=== PATIENT | female | born 1950 | race Caucasian/White ===

== ENCOUNTER 2016-10-27 08:41 | Inpatient (IN) | payer OTHER ==
[2016-10-27] VITALS (7 sets, daily range): BP systolic 114–142; BP diastolic 62–77; PULSE 76–85; RESP 16–18; TEMP 97.9–99.7; O2SAT 92–96
[~2016-10-27] VITALS: Ht 157.5 cm; Wt 55.3 kg
[~2016-10-27 08:41] MED LIST: ASPI81 PO; ATEN1TAB73 PO; CLON.1 PO; HYDR-2768 PO; KLOR20TA6 PO; NIFE1TAB85 PO; PROC60TA PO
[2016-10-27] MEDS ORDERED: LACTULOSE SYRUP 20 GM/30 ML CUP PO ONE (09:00)
[2016-10-27] MEDS ORDERED: SODIUM CHLORID 0.9% 500 ML INJ 500 ML IV ONE (09:00)
[2016-10-27] MEDS ORDERED: CLON0.1T PO (09:02)
[2016-10-27] MEDS ORDERED: ATEN50TA PO (09:02)
[2016-10-27] MEDS ORDERED: AMLO5TAB2 PO (09:02)
[2016-10-27] MEDS ORDERED: POTASSIUM CL (09:02)
[2016-10-27] MEDS ORDERED: MAGN400T2 PO (09:02)
[2016-10-27] MEDS ORDERED: ASPI81TA81 (09:02)
[2016-10-27] MEDS ORDERED: HYDR25TA5 PO (09:02)
--- NOTE | 2016-10-27 09:22 | PD ---
HPI Chief Complaint: GI Complaint Time Seen by Provider: 08:54 Travel History International Travel<30 days: No Contact w/Intl Traveler<30days: No Traveled to known affect area: No History of Present Illness HPI Patient is a 66 year old female who comes in complaining of abdominal pain and constipation. She says she has not had a sufficient bowel movement in two weeks. She reports taking different laxatives and only having small movements or diarrhea. She drank half a bottle of prune juice last night and it caused her to vomit. She says she has some pain to the right side of her abdomen. She denies fever or chills. She has had issues with constipation for many years. She denies dysuria or other symptoms. [facility] Past Medical History Cardiovascular Problems: Yes (HTN) Diminished Hearing: No Gastrointestinal Disorders: Yes (DIVERTICULITIS, CONSTIPATION) Hypertension: Yes Influenza Vaccination: Yes ?: Not Past Surgical History Abdominal Surgery: Yes (HERNIA REPAIR) Tonsillectomy: Yes Social History Alcohol Use: Yes ("A BEER A DAY AFTER WORK") Tobacco Use: No Substance Use: No Allergies-Medications (Allergen,Severity, Reaction): Coded Allergies: Latex (Verified Allergy, Unknown, 10/27/16) Reported Meds & Prescriptions Reported Meds & Active Scripts Active Reported Aspir-81 (Aspirin) 81 Mg Tabdr [Potassium Cl] Magnesium Oxide 400 Mg Tab 400 Mg PO BID Hydrochlorothiazide 25 Mg Tab 25 Mg PO DAILY Clonidine (Clonidine HCl) 0.1 Mg Tab 0.1 Mg PO BID Atenolol 50 Mg Tab 50 Mg PO DAILY Amlodipine (Amlodipine Besylate) 5 Mg Tab 5 Mg PO BID Review of Systems Except as stated in HPI: all other systems reviewed are Neg General / Constitutional: No: Fever, Chills HENT: No: Headaches, Lightheadedness Cardiovascular: No: Chest Pain or Discomfort Respiratory: No: Shortness of Breath Gastrointestinal: Positive: Vomiting, Abdominal Pain, Constipation Genitourinary: No: Dysuria Skin: No Rash, No Change in Pigmentation Neurologic: No: Weakness, Dizziness Physical Exam Narrative GENERAL: Awake and alert, in no acute distress. SKIN: Focused skin assessment warm/dry. HEAD: Atraumatic. Normocephalic. EYES: Pupils equal and round. No scleral icterus. No injection or drainage. ENT: Mucous membranes pink and moist. NECK: Trachea midline. No JVD. CARDIOVASCULAR: Regular rate and rhythm. No murmur appreciated. RESPIRATORY: No accessory muscle use. Clear to auscultation. Breath sounds equal bilaterally. GASTROINTESTINAL: Abdomen soft, nondistended. Tender to palpation of the right lower quadrant. No rebound or guarding. MUSCULOSKELETAL: No obvious deformities. No clubbing. No cyanosis. No edema. NEUROLOGICAL: Awake and alert. No obvious cranial nerve deficits. Motor grossly within normal limits. Normal speech. PSYCHIATRIC: Appropriate mood and affect; insight and judgment normal. Data Data Last Documented VS Vital Signs Date Time Temp Pulse Resp B/P Pulse Ox O2 Delivery O2 Flow Rate FiO2 10/27/16 08:45 98.2 85 16 142/77 96 Orders Complete Blood Count With Diff (10/27/16 09:00) Comprehensive Metabolic Panel (10/27/16 09:00) Ct Abd/Pel W Iv Contrast(Rout) (10/27/16 ) Sodium Chlorid 0.9% 500 Ml Inj (Ns 500 M (10/27/16 09:00) Lactulose Liq (Lactulose Liq) (10/27/16 09:00) Iv Access Insert/Monitor (10/27/16 09:00) Urinalysis - C+S If Indicated (10/27/16 09:22) Potassium Chloride (Kcl) (10/27/16 10:15) Potassium Chlor 10 Meq Premix (Kcl 10 Me (10/27/16 10:15) Iohexol 350 Inj (Omnipaque 350 Inj) (10/27/16 10:54) Ciprofloxacin 400 Mg Premix (Cipro 400 M (10/27/16 11:45) Metronidazole 500 Mg Inj (Flagyl 500 Mg (10/27/16 11:45) Admit Order (Ed Use Only) (10/27/16 ) Labs Laboratory Tests Test 10/27/16 10/27/16 09:15 10:25 White Blood Count 16.8 TH/MM3 Red Blood Count 3.78 MIL/MM3 Hemoglobin 12.5 GM/DL Hematocrit 34.9 % Mean Corpuscular Volume 92.3 FL Mean Corpuscular Hemoglobin 33.0 PG Mean Corpuscular Hemoglobin 35.8 % Concent Red Cell Distribution Width 12.8 % Platelet Count 220 TH/MM3 Mean Platelet Volume 9.6 FL Neutrophils (%) (Auto) 86.9 % Lymphocytes (%) (Auto) 4.9 % Monocytes (%) (Auto) 7.5 % Eosinophils (%) (Auto) 0.6 % Basophils (%) (Auto) 0.1 % Neutrophils # (Auto) 14.6 TH/MM3 Lymphocytes # (Auto) 0.8 TH/MM3 Monocytes # (Auto) 1.3 TH/MM3 Eosinophils # (Auto) 0.1 TH/MM3 Basophils # (Auto) 0.0 TH/MM3 CBC Comment DIFF FINAL Differential Comment Sodium Level 124 MEQ/L Potassium Level 2.5 MEQ/L Chloride Level 79 MEQ/L Carbon Dioxide Level 32.0 MEQ/L Anion Gap 13 MEQ/L Blood Urea Nitrogen 8 MG/DL Creatinine 0.88 MG/DL Estimat Glomerular Filtration 65 ML/MIN Rate Random Glucose 119 MG/DL Calcium Level 9.2 MG/DL Magnesium Level 2.0 MG/DL Total Bilirubin 0.8 MG/DL Aspartate Amino Transf 26 U/L (AST/SGOT) Alanine Aminotransferase 20 U/L (ALT/SGPT) Alkaline Phosphatase 74 U/L Total Protein 8.1 GM/DL Albumin 4.4 GM/DL Thyroid Stimulating Hormone 0.886 uIU/ML 3rd Gen Urine Color STRAW Urine Turbidity CLEAR Urine pH 7.0 Urine Specific [place] 1.007 Urine Protein NEG mg/dL Urine Glucose (UA) NEG mg/dL Urine Ketones NEG mg/dL Urine Occult Blood TRACE Urine Nitrite NEG Urine Bilirubin NEG Urine Leukocyte Esterase NEG Urine RBC 0-3 /hpf Urine Squamous Epithelial 0-5 /hpf Cells Microscopic Urinalysis Comment CULT NOT INDICATED MDM Medical Decision Making Medical Screen Exam Complete: Yes Emergency Medical Condition: Yes Medical Record Reviewed: Yes Differential Diagnosis Constipation versus colitis versus appendicitis versus diverticulitis Narrative Course Patient is a 66-year-old female comes in complaining of abdominal pain and constipation. Exam shows right lower quadrant tenderness. IV established, labs sent. Labs show hyponatremia and hypokalemia. Patient given small bolus of NS. Potassium replaced. CT shows likely colitis vs mass. Given Flagyl and Cipro. Admitted for further management. Diagnosis Primary Impression: Colitis Additional Impressions: Hypokalemia Hyponatremia Admitting Information Admitting Physician Requests: Admit Scripts Sennosides-Docusate Sodium (Senna-S 8.6-50 mg)1 Tab Tab1 Tab PO DAILY #31 TAB Prov:Lanette Lees MD 10/28/16 Lactobacillus Acidophilus (Acidophilus/l-Sporogenes)1 Tab Tab1 Tab PO Q12HR # 62 TAB Prov:Lanette Lees MD 10/28/16 Metronidazole (Flagyl)500 Mg [id number] Mg PO TID #24 TAB Ref 0 Prov:Lanette Lees MD 10/28/16 Ciprofloxacin (Cipro)500 Mg [id number] Mg PO BID #16 TAB Ref 0 Prov:Lanette Lees MD 10/28/16 Condition: Belia Horton MD Oct 27, 2016 09:22
[2016-10-27 09:28] LABS: AUTOMATED NEUTROPHIL # 14.6 TH/MM3 (1.8-7.7); BASOPHIL % 0.1 % (0.0-2.0); EOSINOPHIL # 0.1 TH/MM3 (0-0.4); EOSINOPHIL % 0.6 % (0.0-4.0); HEMATOCRIT 34.9 % (35.0-46.0); HEMO FLAGS DIFF FINAL; LYMPH % 4.9 % (9.0-44.0); LYMPHOCYTE # 0.8 TH/MM3 (1.0-4.8); MEAN CELL VOLUME 92.3 FL (80.0-100.0); MEAN CORPUSCULAR HGB CONC 35.8 % (32.0-36.0); MONO % 7.5 % (0.0-8.0); NEUT % 86.9 % (16.0-70.0); PLATELET COUNT 220 TH/MM3 (150-450); RED BLOOD COUNT 3.78 MIL/MM3 (4.00-5.30); RED CELL DISTRIBUTION WIDTH 12.8 % (11.6-17.2); WHITE BLOOD COUNT 16.8 TH/MM3 (4.0-11.0)
[2016-10-27 10:07] LABS: BLOOD UREA NITROGEN 8 MG/DL (7-18); CHLORIDE 79 MEQ/L (98-107)
[2016-10-27 10:10] LABS: ANION GAP 13 MEQ/L (5-15); POTASSIUM 2.5 MEQ/L (3.5-5.1); SODIUM (NA) 124 MEQ/L (136-145)
[2016-10-27] MEDS ORDERED: POTASSIUM CHLOR 10 MEQ PREMIX 100 ML IV ONE (10:15)
[2016-10-27] MEDS ORDERED: POTASSIUM CHLORIDE 10 MEQ CONTROLLED RELEASE TAB PO ONE (10:15)
[2016-10-27 10:31] LABS: ALKALINE PHOSPHATASE 74 U/L (45-117); ALT (GPT) 20 U/L (10-53); AST (GOT) 26 U/L (15-37); GLOMERULAR FILTRATION RATE 65 ML/MIN (>89); TOTAL BILIRUBIN ADULT 0.8 MG/DL (0.2-1.0)
[2016-10-27 10:54] LABS: BLOOD, URINE TRACE (NEG); GLUCOSE,URINE NEG (NEG); KETONE, URINE NEG (NEG); NITRITE,URINE NEG (NEG)
[2016-10-27] MEDS ORDERED: IOHEXOL 350 MG/ML 10 ML VIAL (for RAD DIAG) IV ONE (10:54)
[2016-10-27 11:03] LABS: COMMENT (UR) CULT NOT INDICATED; CULTURE IF INDICATED CULT NOT INDICATED; RBC, URINE 0-3 /hpf (0-3); SQUAMOUS EPITHELIAL CELL URINE 0-5 /hpf (0-5); URINE COLOR STRAW (YELLW/STRAW)
--- NOTE | 2016-10-27 11:17 | RADHPO ---
EXAM DATE/TIME: 10/27/2016 10:39 [place] COMPARISON: No previous studies available for comparison. INDICATIONS : Right abdominal pain. Constipation x 2 weeks. IV CONTRAST: 85 cc Omnipaque 350 (iohexol) IV ORAL CONTRAST: No oral contrast ingested. RADIATION DOSE: 5.55 CTDIvol (mGy) MEDICAL HISTORY : Diverticulitis. Hypertension. SURGICAL HISTORY : Hernia repair. ENCOUNTER: Initial ACUITY: 2 weeks PAIN SCALE: 4/10 LOCATION: Right abdomen. TECHNIQUE: Volumetric scanning of the abdomen and pelvis was performed. Using automated exposure control and ad justment of the mA and/or kV according to patient size, radiation dose was kept as low as reasonably achievable to obtain optimal diagnostic quality images. FINDINGS: LOWER LUNGS: There is a 5 mm noncalcified nodule within the left lower lobe which is indeterminate. Followup outpa tient CT of chest would be helpful for further evaluation. Bibasilar fibrotic scarring is noted. LIVER: Homogeneous density without lesion. There is no dilation of the biliary tree. No calcified gallston es. SPLEEN: Normal size without lesion. PANCREAS: Within normal limits. KIDNEYS: Normal in size and shape. There is no mass, stone or hydronephrosis. ADRENAL GLANDS: Within normal limits. VASCULAR: There is no aortic aneurysm. BOWEL/MESENTERY: There is wall thickening involving the cecum raising the possibility of focal colitis. Colonoscopy wo uld be helpful for further evaluation to rule out underlying mass. Uncomplicated sigmoid diverticulos is is noted.ABDOMINAL WALL: Within normal limits. RETROPERITONEUM: There is no lymphadenopathy. BLADDER: No wall thickening or mass. REPRODUCTIVE: Within normal limits. INGUINAL: There is no lymphadenopathy or hernia. MUSCULOSKELETAL: Degenerative changes and scoliosis of the lumbar spine are noted. CONCLUSION: 1. Wall thickening involving the cecum raising the possibility of focal colitis. Colonoscopy would be helpful for further evaluation to rule out underlying mass. 2. 5 mm noncalcified nodule within the left lower lobe which is indeterminate. Followup outpatient CT of chest would be helpful for further evaluation. 3. Uncomplicated sigmoid diverticulosis. 4. Degenerative changes and scoliosis of the lumbar spine. Bradley Sanchez MD on October 27, 2016 at 11:07 Board Certified Radiologist. This report was verified electronically.
[2016-10-27] MEDS ORDERED: CIPROFLOXACIN 400 MG PREMIX 200 ML IV ONE (11:45)
[2016-10-27] MEDS ORDERED: metroNIDAZOLE 500 MG INJ 100 ML IV ONE (11:45)
[2016-10-27] MEDS ORDERED: SODIUM CHLORIDE 0.9% FLUSH 10 ML FLUSH IV FLUSH PRN (12:15)
[2016-10-27] MEDS ORDERED: ONDANSETRON HCL 4 MG/2 ML VIAL IVP PRN (13:00)
[2016-10-27] MEDS: SODIUM CHLOR 0.9% 1000 ML INJ 1,000 ML IV SCH ×2 (13:17→21:12)
[2016-10-27] MEDS: LACTULOSE SYRUP 20 GM/30 ML CUP PO SCH ×3 (14:41→20:22)
--- NOTE | 2016-10-27 15:03 | HHI.HP ---
[facility] Admission Diagnosis Hyponatremia, hypokalemia, colitis Diagnoses: Chief Complaint: constpiation Travel History International Travel<30 Days: No Contact w/Intl Traveler <30 Da: No Traveled to Known Affected Are: No History of Present Illness Patient is a 66-year-old female with chronic intermittent constipation for at least 30 years. She has been taking multiple laxatives and stimulants and stool softeners with intermittent relief. For the last 2 weeks she has had no status after bowel movement although she has been passing gas without difficulty. She has intermittent diarrhea and minimal hard stools. There has been no bleeding. She denies any pain with defecation, unexpected weight loss, fever. She did have episode of nausea and vomiting after she drank 30 ounces of hot prune juice yesterday. She has not had any nausea or vomiting before or since that episode. She did go to an urgent care center and was sent to the emergency room. A CT abdomen and pelvis was done which is still some evidence of colitis with stool retention. 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 SKIN: No rashes, ecchymoses or lesions. Cool and dry. HEAD: Atraumatic. Normocephalic. No temporal or scalp tenderness. EYES: Pupils equal round and reactive. Extraocular motions intact. No scleral icterus. No injection or drainage. ENT: Nose without bleeding, purulent drainage or septal hematoma. Throat without erythema, tonsillar hypertrophy or exudate. Uvula midline. Airway patent. NECK: Trachea midline. No JVD or lymphadenopathy. Supple, nontender, no meningeal signs. CARDIOVASCULAR: Regular rate and rhythm without murmurs, gallops, or rubs. RESPIRATORY: Clear to auscultation. Breath sounds equal bilaterally. No wheezes , rales, or rhonchi. GASTROINTESTINAL: Abdomen soft, non-tender, nondistended.hypoactive. No hepato- splenomegaly, or palpable masses. No guarding. MUSCULOSKELETAL: Extremities without clubbing, cyanosis, or edema. No joint tenderness, effusion, or edema noted. No calf tenderness. Negative Homans sign bilaterally. NEUROLOGICAL: Awake and alert. Cranial nerves II through XII intact. Motor and sensory grossly within normal limits. Five out of 5 muscle strength in all muscle groups. Normal speech. Laboratory Laboratory Tests Test 10/27/16 10/27/16 09:15 10:25 White Blood Count 16.8 Red Blood Count 3.78 Hemoglobin 12.5 Hematocrit 34.9 Mean Corpuscular Volume 92.3 Mean Corpuscular Hemoglobin 33.0 Mean Corpuscular Hemoglobin 35.8 Concent Red Cell Distribution Width 12.8 Platelet Count 220 Mean Platelet Volume 9.6 Neutrophils (%) (Auto) 86.9 Lymphocytes (%) (Auto) 4.9 Monocytes (%) (Auto) 7.5 Eosinophils (%) (Auto) 0.6 Basophils (%) (Auto) 0.1 Neutrophils # (Auto) 14.6 Lymphocytes # (Auto) 0.8 Monocytes # (Auto) 1.3 Eosinophils # (Auto) 0.1 Basophils # (Auto) 0.0 CBC Comment DIFF FINAL Differential Comment Sodium Level 124 Potassium Level 2.5 Chloride Level 79 Carbon Dioxide Level 32.0 Anion Gap 13 Blood Urea Nitrogen 8 Creatinine 0.88 Estimat Glomerular Filtration 65 Rate Random Glucose 119 Calcium Level 9.2 Total Bilirubin 0.8 Aspartate Amino Transf 26 (AST/SGOT) Alanine Aminotransferase 20 (ALT/SGPT) Alkaline Phosphatase 74 Total Protein 8.1 Albumin 4.4 Urine Color STRAW Urine Turbidity CLEAR Urine pH 7.0 Urine Specific [place] 1.007 Urine Protein NEG Urine Glucose (UA) NEG Urine Ketones NEG Urine Occult Blood TRACE Urine Nitrite NEG Urine Bilirubin NEG Urine Leukocyte Esterase NEG Urine RBC 0-3 Urine Squamous Epithelial 0-5 Cells Microscopic Urinalysis Comment CULT NOT INDICATED Result Diagram: 10/27/16 0915 10/27/16 0915 Imaging Last Impressions Abdomen/Pelvis CT 10/27/16 0000 Signed Impressions: Service Date/Time: , October 27, 2016 10:39 - CONCLUSION: 1. Wall thickening involving the cecum raising the possibility of focal colitis. Colonoscopy would be helpful for further evaluation to rule out underlying mass. 2. 5 mm noncalcified nodule within the left lower lobe which is indeterminate. Followup outpatient CT of chest would be helpful for further evaluation. 3. Uncomplicated sigmoid diverticulosis. 4. Degenerative changes and scoliosis of the lumbar spine. Bradley Sanchez MD Assessment and Plan Problem List: (1) Constipation ICD Code: K59.00 Status: Acute Plan: Chronic for years. Patient has been on and off laxative stimulants for at least 3 decades. We'll add lactulose and probiotics, educate patient regarding bowel health Evaluate for pathogenic diarrhea tsh, mag pending correct electrolytes colonoscopy 9 years ago patient refuses endoscopy at this time I did review the CT scan personally and there appears to be quite a bit of stool with some inflammation around the cecum (2) Colitis ICD Code: K52.9 Status: Acute Plan: cipro/flagyl empiric check cultures (3) Hypokalemia ICD Code: E87.6 Status: Acute Plan: replace and check mg (4) Hyponatremia ICD Code: E87.1 Status: Acute Plan: ivf, follow trend Code Status Full code Discussed Condition With Patient, Mary Ann STAHL and sister APARNA Carrington Physician Certification 2 Midnight Certification Type: Admission for Inpatient Services Order for Inpatient Services The services are ordered in accordance with Medicare regulations or non- Medicare payer requirements, as applicable. In the case of services not specified as inpatient-only, they are appropriately provided as inpatient services in accordance with the 2-midnight benchmark. Estimated LOS (days): 3 3 days is the estimated time the patient will need to remain in the hospital, assuming treatment plan goals are met and no additional complications. Post-Hospital Plan: Home Lanette Lees MD Oct 27, 2016 15:03
[2016-10-27 19:27] LABS: C. DIFF EPI 027 PRESUMPTIVE NEGATIVE (NEGATIVE); C. DIFF TOXIN PCR NEGATIVE (NEGATIVE)
[2016-10-27] MEDS: MAGNESIUM OXIDE 400 MG TAB PO SCH (20:21)
[2016-10-27] MEDS: SODIUM CHLORIDE 0.9% FLUSH 10 ML FLUSH IV FLUSH SCH (20:22)
[2016-10-27] MEDS: LACTOBACILLUS ACIDOPHILUS TAB PO SCH (20:22)
[2016-10-27] MEDS: cloNIDine HCL 0.1 MG TAB PO SCH (20:22)
[2016-10-27] MEDS: metroNIDAZOLE 500 MG INJ 100 ML IV SCH (20:22)
[2016-10-27] MEDS: amLODIPine BESYLATE 5 MG TAB PO SCH (20:22)
[2016-10-27] MEDS ORDERED: DICYCLOMINE HCL 20 MG TAB PO ONE (21:00)
[2016-10-28] VITALS: BP 109/64; PULSE 75; RESP 16; TEMP 98.5; O2SAT 96
[2016-10-28] MEDS: CIPROFLOXACIN 400 MG PREMIX 200 ML IV SCH ×2 (01:41→11:33)
[2016-10-28] MEDS: metroNIDAZOLE 500 MG INJ 100 ML IV SCH ×2 (06:04→11:33)
[2016-10-28 08:00] VITALS: BP 116/64; PULSE 67; RESP 16; TEMP 97.5; O2SAT 98
[2016-10-28] MEDS: SODIUM CHLOR 0.9% 1000 ML INJ 1,000 ML IV SCH (08:15)
[2016-10-28 08:50] LABS: AUTOMATED NEUTROPHIL # 12.1 TH/MM3 (1.8-7.7); BASOPHIL # 0.1 TH/MM3 (0-0.2); BASOPHIL % 0.4 % (0.0-2.0); EOSINOPHIL # 0.1 TH/MM3 (0-0.4); EOSINOPHIL % 0.5 % (0.0-4.0); HEMATOCRIT 31.7 % (35.0-46.0); LYMPH % 10.1 % (9.0-44.0); LYMPHOCYTE # 1.5 TH/MM3 (1.0-4.8); MEAN CELL VOLUME 94.7 FL (80.0-100.0); MEAN CORPUSCULAR HEMOGLOBIN 32.2 PG (27.0-34.0); MONO % 7.2 % (0.0-8.0); NEUT % 81.8 % (16.0-70.0); PLATELET COUNT 193 TH/MM3 (150-450); RED BLOOD COUNT 3.35 MIL/MM3 (4.00-5.30); WHITE BLOOD COUNT 14.9 TH/MM3 (4.0-11.0)
[2016-10-28 08:52] LABS: HEMO FLAGS DIFF FINAL
[2016-10-28] MEDS: SODIUM CHLORIDE 0.9% FLUSH 10 ML FLUSH IV FLUSH SCH (09:00)
[2016-10-28] MEDS ORDERED: ATENOLOL 50 MG TAB PO SCH (09:00)
[2016-10-28] MEDS ORDERED: HYDROCHLOROTHIAZIDE 25 MG TAB PO SCH (09:00)
[2016-10-28] MEDS: MAGNESIUM OXIDE 400 MG TAB PO SCH (09:24)
[2016-10-28] MEDS: LACTOBACILLUS ACIDOPHILUS TAB PO SCH (09:24)
[2016-10-28] MEDS: cloNIDine HCL 0.1 MG TAB PO SCH (09:24)
[2016-10-28] MEDS: amLODIPine BESYLATE 5 MG TAB PO SCH (09:24)
[2016-10-28] MEDS: LACTULOSE SYRUP 20 GM/30 ML CUP PO SCH ×2 (09:25→11:33)
[2016-10-28 10:16] LABS: BICARBONATE 28.7 MEQ/L (21.0-32.0)
[2016-10-28 10:18] LABS: POTASSIUM 2.6 MEQ/L (3.5-5.1)
[2016-10-28] MEDS ORDERED: POTASSIUM CHLORIDE 10 MEQ CONTROLLED RELEASE TAB PO SCH (11:00)
[2016-10-28 12:00] VITALS: BP 128/73; PULSE 70; RESP 18; TEMP 97.5; O2SAT 97
[2016-10-28] MEDS ORDERED: LACT PO (12:49)
[2016-10-28] MEDS ORDERED: METR-1 PO (12:49)
[2016-10-28] MEDS ORDERED: SENN8.6T19 PO (12:49)
[2016-10-28] MEDS ORDERED: CIPR-9 PO (12:49)
--- NOTE | 2016-10-28 12:50 | HHI.DCPOC ---
Discharge Care Plan Diagnosis: (1) Constipation (2) Colitis Goals to Promote Your Health * To prevent worsening of your condition and complications * To maintain your health at the optimal level Directions to Meet Your Goals Take your medications as prescribed Follow your dietary instruction Follow activity as directed Keep your appointments as scheduled Take your immunizations and boosters as scheduled If your symptoms worsen call your PCP, if no PCP go to Urgent Care Center or Emergency Room Smoking is Dangerous to Your Health. Avoid second hand smoke Call the 24-hour hour crisis hotline for domestic abuse at Lanette Lees MD Oct 28, 2016 12:50
--- NOTE | 2016-10-28 13:59 | HHI.DS ---
Discharge Summary Admission Date Oct 27, 2016 at 14:46 Discharge Date: Oct 28, 2016 Admitting Diagnosis Hyponatremia, hypokalemia, colitis (1) Constipation ICD Code: K59.00 (2) Colitis ICD Code: K52.9 (3) Hypokalemia ICD Code: E87.6 (4) Hyponatremia ICD Code: E87.1 Procedures none Brief History - From Admission Patient is a 66-year-old female with chronic intermittent constipation for at least 30 years. She has been taking multiple laxatives and stimulants and stool softeners with intermittent relief. For the last 2 weeks she has had no status after bowel movement although she has been passing gas without difficulty. She has intermittent diarrhea and minimal hard stools. There has been no bleeding. She denies any pain with defecation, unexpected weight loss, fever. She did have episode of nausea and vomiting after she drank 30 ounces of hot prune juice yesterday. She has not had any nausea or vomiting before or since that episode. She did go to an urgent care center and was sent to the emergency room. A CT abdomen and pelvis was done which is still some evidence of colitis with stool retention. Patient has been admitted to the hospital for further evaluation and treatment of this issue CBC/BMP: 10/28/16 0833 10/28/16 0833 Significant Findings Laboratory Tests Test 10/27/16 10/27/16 10/28/16 09:15 10:25 08:33 White Blood Count 16.8 TH/MM3 14.9 TH/MM3 (4.0-11.0) (4.0-11.0) Red Blood Count 3.78 MIL/MM3 3.35 MIL/MM3 (4.00-5.30) (4.00-5.30) Hematocrit 34.9 % 31.7 % (35.0-46.0) (35.0-46.0) Neutrophils (%) (Auto) 86.9 % 81.8 % (16.0-70.0) (16.0-70.0) Lymphocytes (%) (Auto) 4.9 % (9.0-44.0) Neutrophils # (Auto) 14.6 TH/MM3 12.1 TH/MM3 (1.8-7.7) (1.8-7.7) Lymphocytes # (Auto) 0.8 TH/MM3 (1.0-4.8) Monocytes # (Auto) 1.3 TH/MM3 1.1 TH/MM3 (0-0.9) (0-0.9) Sodium Level 124 MEQ/L 133 MEQ/L (136-145) (136-145) Potassium Level 2.5 MEQ/L 2.6 MEQ/L (3.5-5.1) (3.5-5.1) Chloride Level 79 MEQ/L 95 MEQ/L (98-107) (98-107) Estimat Glomerular Filtration 65 ML/MIN (>89) Rate Random Glucose 119 MG/DL (74-106) Urine Occult Blood TRACE (NEG) Hemoglobin 10.8 GM/DL (11.6-15.3) Blood Urea Nitrogen 4 MG/DL (7-18) Imaging Last Impressions Abdomen/Pelvis CT 10/27/16 0000 Signed Impressions: Service Date/Time: October 10:39 - CONCLUSION: 1. Wall thickening involving the cecum raising the possibility of focal colitis. Colonoscopy would be helpful for further evaluation to rule out underlying mass. 2. 5 mm noncalcified nodule within the left lower lobe which is indeterminate. Followup outpatient CT of chest would be helpful for further evaluation. 3. Uncomplicated sigmoid diverticulosis. 4. Degenerative changes and scoliosis of the lumbar spine. Bradley Sanchez MD PE at Discharge GENERAL: This is a well-nourished, well-developed patient, in no apparent distress. CARDIOVASCULAR: Regular rate and rhythm without murmurs, gallops, or rubs. RESPIRATORY: Clear to auscultation. Breath sounds equal bilaterally. No wheezes , rales, or rhonchi. GASTROINTESTINAL: Abdomen soft, non-tender, nondistended. Normal active bowel sounds MUSCULOSKELETAL: Extremities without clubbing, cyanosis, or edema. NEURO: Alert & Oriented x4 to person, place, time, situation. Moves all ext x4 Pt update on day of discharge Patient seen and examined today in follow up for constipation and colitis, patient reports good BM overnight and minimal discomfort.I reinforced the need for gi follow up and she again agreed for outpatient follow up. DC med discussed with patient. Hospital Course Patient evaluated for constipation and colitis. Stool studies negative. Potassium replaced and leukocytosis improved. The BM improved and she was dc'd home Pt Condition on Discharge: Good Discharge Disposition: Discharge Home Discharge Time: > 30 minutes Discharge Instructions DIET: Follow Instructions for: High Fiber Diet Activities you can perform: Regular-No Restrictions Follow up Referrals: [facility]enter[facility] - [facility] New Medications: Ciprofloxacin (Cipro) 500 Mg Tab 500 MG PO BID Infection #16 Ref 0 TAB Metronidazole (Flagyl) 500 Mg Tab 500 MG PO TID Infection #24 Ref 0 TAB Sennosides-Docusate Sodium (Senna-S 8.6-50 mg) 1 Tab Tab 1 TAB PO DAILY Constipation #31 TAB Lactobacillus Acidophilus (Acidophilus/l-Sporogenes) 1 Tab Tab 1 TAB PO Q12HR colon #62 TAB Continued Medications: Amlodipine (Amlodipine) 5 Mg Tab 5 MG PO BID Blood Pressure Management #30 Ref [address] (Aspir-81) 81 Mg Tabdr Atenolol (Atenolol) 50 Mg Tab 50 MG PO DAILY Blood Pressure Management #30 Ref 0 TAB Clonidine (Clonidine) 0.1 Mg Tab 0.1 MG PO BID Blood Pressure Management #60 Ref 0 TAB Hydrochlorothiazide (Hydrochlorothiazide) 25 Mg Tab 25 MG PO DAILY #30 Ref 0 TAB Magnesium Oxide (Magnesium Oxide) 400 Mg Tab 400 MG PO BID Nutritional Supplement Ref 0 TAB ([Potassium Cl]) Lanette Lees MD Oct 28, 2016 13:59
== END 2016-10-28 14:07 | disposition home or self-care (01) | DRG 392 ==
LOC: PHED 08:41 → INTOOBSV 11:58 → PHEDA 11:58 → PH3B 13:30 → OBSVTOIN 14:46
PROVIDERS: ADMIT Hospitalist; ATTEND Hospitalist
DX: K52.9 Noninfective gastroenteritis and colitis, unspecified (principal); E87.1 Hypo-osmolality and hyponatremia; I10 Essential (primary) hypertension; E87.6 Hypokalemia; K57.30 Diverticulosis of large intestine without perforation or abscess without bleeding; K59.00 Constipation, unspecified; Z79.82 Long term (current) use of aspirin
CPT/HCPCS: 74177; 80048; 80053; 81001; 83735; 84443; 85025; 87205; 87328; 87329; 87493; 87506; 96361; 96365; J0744; J2405; J3480; J7030; J7040; Q9967

== ENCOUNTER 2017-11-26 01:16 | Observation (INO) ==
[2017-11-26 04:23] LABS: Baso # (Auto) 0.1 th/mm3 (0.0-0.2); Baso % (Auto) 1.5 % (0.0-2.0); Eos # (Auto) 0.5 th/mm3 (0.0-0.4); Eos % (Auto) 7.2 % (0.0-4.0); Hematocrit 32.6 % (35.0-46.0); Hemoglobin 11.3 gm/dL (11.6-15.3); Lymph # (Auto) 2.3 th/mm3 (1.0-4.8); Lymph % (Auto) 36.2 % (9.0-44.0); Mean Corpuscular HGB Conc 34.6 % (32.0-36.0); Mean Corpuscular Hemoglobin 32.2 pg (27.0-34.0); Mean Corpuscular Volume 93.1 fL (80.0-100.0); Mean Platelet Volume 11.3 fL (7.0-11.0); Mono # (Auto) 0.6 th/mm3 (0.0-0.9); Mono % (Auto) 9.1 % (0.0-8.0); Neut # (Auto) 2.9 th/mm3 (1.8-7.7); Platelet Count 191 th/mm3 (150-450); Red Cell Distribution Width 13.8 % (11.6-17.2); White Blood Count 6.4 th/mm3 (4.0-11.0)
[2017-11-26 04:43] LABS: Chloride 94 meq/L (98-107); Potassium 3.3 meq/L (3.5-5.1); Sodium 129 meq/L (136-145)
[2017-11-26 04:46] LABS: Calcium 8.4 mg/dL (8.5-10.1)
[2017-11-26 04:47] LABS: Anion Gap 12 meq/L (5-15); Blood Urea Nitrogen 16 mg/dL (7-18); Carbon Dioxide 23.4 meq/L (21.0-32.0); Glucose,Random 82 mg/dL (74-106)
[2017-11-26 04:50] LABS: Glomerular Filtration Rate 76 mL/min (>89)
[2017-11-26 05:01] LABS: Activated Partial Thrombo Time 27.7 sec (24.3-30.1)
--- NOTE | 2017-11-26 05:09 | XR ---
EXAM DATE: 11/26/2017 4:24 AM EDT AGE/SEX: 67 years / Female INDICATIONS: Chest pain. CLINICAL DATA: This is the patient's initial encounter. Patient reports that signs and symptoms have been present for 1 day and indicates a pain score of 1/10. MEDICAL/SURGICAL HISTORY: . Diverticulitis. Hypertension. . Hernia repair. COMPARISON: No prior exams available for comparison. FINDINGS: There is slight blunting of the right costophrenic angle which may indicate small effusion. Lungs are grossly clear. Cardiac contours are satisfactory for technique and projection. CONCLUSION: Possible small right effusion Electronically signed by: Arnold Flynn MD 11/26/2017 5:08 AM EDT
[2017-11-26 05:52] LABS: Creatine Kinase 86 U/L (26-192)
--- NOTE | 2017-11-26 06:50 | ED ---
HPI General Chief Complaint: Chest Pain Stated Complaint: EVAC/BP Time Seen by Provider: 11/26/17 04:12 History of Present Illness HPI narrative: 67-year-old female presents to the emergency department by EMS transport from home for complaint of chest pain. Patient states last evening she started noticing retrosternal chest pain radiating into her back with elevated blood pressure. Patient states that she has hypertension and took extra dose of as of clonidine to get her blood pressure down upon EMS arrival patient blood pressure was in normal range. Patient states chest pain has resolved. Patient did not take any aspirin prior to arrival to the emergency department. Patient states that she has no known history of coronary vessel disease but has had a stress test in the past to the MD but not recently. Patient denies any orthopnea or PND. Complete Quality Measures for STEMI Alert Patients Related Data Home Medications Medication Instructions Recorded Confirmed Lactobacillus acidophilus 1 tab PO BID 11/26/17 11/26/17 amlodipine 5 mg PO DAILY 11/26/17 11/26/17 atenolol 50 mg PO DAILY 11/26/17 11/26/17 atorvastatin 40 mg PO DAILY 11/26/17 11/26/17 carboxymethylcellulose sodium 1 drp OPHTHALMIC (EYE) Q4-6H 11/26/17 11/26/17 clonidine HCl See Label Instructions .ROUTE 11/26/17 11/26/17 .COMPLEX magnesium oxide 400 mg PO DAILY 11/26/17 11/26/17 polyethylene glycol 3350 17 g PO BID 11/26/17 11/26/17 potassium chloride 30 meq PO DAILY 11/26/17 11/26/17 Allergies Allergy/AdvReac Type Severity Reaction Status Date / Time latex Allergy Unknown Rash Verified 11/26/17 09:12 Review of Systems Except as stated in HPI: all other systems reviewed are negative [facility] Medical History Medical History Hypercholesterolemia (Acute) Hypertension (Acute) Right bundle branch block (Acute) Surgical History Surgical History History of repair of hiatal hernia (Acute) Hx of tonsillectomy (Acute) Family History Family History Mother Cardiovascular disease Father Cardiovascular disease Social History Social History Substance History: No History of Abuse Second Hand Smoke Exposure: No Smoking Status: Former smoker Tobacco Type: Cigarettes How Often Do You Have a Drink Containing Alcohol: 2 to 3 times a week Recent Travel in [place] within the Last 8 Weeks: No Recent Out of Country Travel within the Last 8 Weeks: No Immunization History Tetanus Immunization: <5 Years Hx Influenza Vaccine This Season: Yes Exam Narrative Exam Narrative: GENERAL: Well-nourished, well-developed patient. SKIN: Focused skin assessment warm/dry. HEAD: Normocephalic. EYES: No scleral icterus. No injection or drainage. NECK: Supple, trachea midline. No JVD or lymphadenopathy. CARDIOVASCULAR: Regular rate and rhythm without murmurs, gallops, or rubs. RESPIRATORY: Breath sounds equal bilaterally. No accessory muscle use. GASTROINTESTINAL: Abdomen soft, non-tender, nondistended. MUSCULOSKELETAL: No cyanosis, or edema. BACK: Nontender without obvious deformity. No CVA tenderness. Course Initial Documented Vital Signs Temperature 97.4 F L 11/26/17 02:04 Pulse Rate 79 11/26/17 02:04 Respiratory Rate 20 11/26/17 02:04 Blood Pressure 134/76 11/26/17 02:04 Pulse Oximetry 98 11/26/17 02:04 Last Documented Vital Signs Temperature 96.8 F L 11/26/17 11:13 Pulse Rate 70 11/26/17 11:13 Respiratory Rate 20 11/26/17 11:13 Blood Pressure 138/68 11/26/17 11:13 Pulse Oximetry 95 11/26/17 11:[address] [facility] Narrative Medical decision making narrative: 67-year-old female with chest pain and uncontrolled hypertension EKG performed reveals sinus rhythm with right bundle branch block patient notes prior history of right bundle branch block. Patient is currently chest pain-free. Patient administered aspirin. Patient noted to have low normal blood pressure did admit to taking extra doses of clonidine prior to arrival to the emergency department. Patient states chest pain has dissipated. Patient's lab work found to be in normal range except for mild hypokalemia Patient with presentation of hypertension chest pain and electrolyte disturbance with hypokalemia and hyponatremia Plan for observation admission with chest pain center protocol discussed with YULY GIBSON for OBS Differential Diagnosis Differential Diagnosis: Chest pain ACS GA uncontrolled hypertension aortic dissection and aortic aneurysm atypical chest pain muscular skeletal pain Medical Records Medical records reviewed: Yes I reviewed the patient's medical records. Lab Data Lab results reviewed: Yes I reviewed the patient's lab results. Result diagrams: 11/26/17 04:00 11/26/17 04:00 Lab Results 11/26/17 11/26/17 11/26/17 Range/Units 04:00 04:00 04:00 CBC w Diff Auto diff final WBC 6.4 (4.0-11.0) th/mm3 RBC 3.50 L (4.00-5.30) mil/mm3 Hgb 11.3 L (11.6-15.3) gm/dL Hct 32.6 L (35.0-46.0) % MCV 93.1 (80.0-100.0) fL MCH 32.2 (27.0-34.0) pg MCHC 34.6 (32.0-36.0) % RDW 13.8 (11.6-17.2) % Plt Count 191 (150-450) th/mm3 MPV 11.3 H (7.0-11.0) fL Neut % (Auto) 46.0 (16.0-70.0) % Lymph % (Auto) 36.2 (9.0-44.0) % [place] % (Auto) 9.1 H (0.0-8.0) % Eos % (Auto) 7.2 H (0.0-4.0) % Baso % (Auto) 1.5 (0.0-2.0) % Neut # (Auto) 2.9 (1.8-7.7) th/mm3 Lymph # (Auto) 2.3 (1.0-4.8) th/mm3 [place] # (Auto) 0.6 (0.0-0.9) th/mm3 Eos # (Auto) 0.5 H (0.0-0.4) th/mm3 Baso # (Auto) 0.1 (0.0-0.2) th/mm3 WBC Differential . Differential Comment . PT 10.0 (9.8-11.6) sec INR 1.0 Ratio APTT 27.7 (24.3-30.1) sec Sodium 129 L (136-145) meq/L Potassium 3.3 L (3.5-5.1) meq/L Chloride 94 L (98-107) meq/L Carbon Dioxide 23.4 (21.0-32.0) meq/L Anion Gap 12 (5-15) meq/L BUN 16 (7-18) mg/dL Creatinine 0.76 (0.50-1.00) mg/dL Estimated GFR 76 L (>89) mL/min Random Glucose 82 (74-106) mg/dL Calcium 8.4 L (8.5-10.1) mg/dL Magnesium 2.0 (1.5-2.5) mg/dL Total Creatine Kinase 86 (26-192) U/L Troponin I Less than 0.02 L (0.02-0.05) ng/mL 11/26/17 11/26/17 Range/Units 06:34 09:26 CBC w Diff WBC (4.0-11.0) th/mm3 RBC (4.00-5.30) mil/mm3 Hgb (11.6-15.3) gm/dL Hct (35.0-46.0) % MCV (80.0-100.0) fL MCH (27.0-34.0) pg MCHC (32.0-36.0) % RDW (11.6-17.2) % Plt Count (150-450) th/mm3 MPV (7.0-11.0) fL Neut % (Auto) (16.0-70.0) % Lymph % (Auto) (9.0-44.0) % [place] % (Auto) (0.0-8.0) % Eos % (Auto) (0.0-4.0) % Baso % (Auto) (0.0-2.0) % Neut # (Auto) (1.8-7.7) th/mm3 Lymph # (Auto) (1.0-4.8) th/mm3 [place] # (Auto) (0.0-0.9) th/mm3 Eos # (Auto) (0.0-0.4) th/mm3 Baso # (Auto) (0.0-0.2) th/mm3 WBC Differential Differential Comment PT (9.8-11.6) sec INR Ratio APTT (24.3-30.1) sec Sodium (136-145) meq/L Potassium (3.5-5.1) meq/L Chloride (98-107) meq/L Carbon Dioxide (21.0-32.0) meq/L Anion Gap (5-15) meq/L BUN (7-18) mg/dL Creatinine (0.50-1.00) mg/dL Estimated GFR (>89) mL/min Random Glucose (74-106) mg/dL Calcium (8.5-10.1) mg/dL Magnesium (1.5-2.5) mg/dL Total Creatine Kinase 84 92 (26-192) U/L Troponin I (0.02-0.05) ng/mL Imaging Data Radiologist's impression: Myocardial Perfusion Scan Nuc Med 11/26/17 00:00 CONCLUSION: 1. Dyskinesis/hypokinesis of the apex without corresponding perfusion abnormality. The remainder of the exam is normal. Chest X-Ray 11/26/17 04:12 CONCLUSION: Possible small right effusion ECG Data Interpretation: EKG normal sinus rhythm rate 67 right bundle branch block pattern age-indeterminate anterior GA Discharge Plan Discharge Disposition Patient Disposition: 30 Still Patient Discharge Condition Condition: Stable Discharge Order Discharge Orders: Discharge Order (Routine); Ordered 11/26/17 Ordered By: Belia Maravilla Discharge Details Anticipated Discharge Date: 11/26/17 Diagnosis: Chest pain, Hypertension Physicians Team ED Provider: Virginia Russo Primary Care Provider: [facility] Attending Provider: Lanette Lees Status ED Status: Left Department Discharge Information Discharge Date/Time: 11/26/17 07:34
--- NOTE | 2017-11-26 08:11 | P.HP ---
History of Present Illness Primary Care Physician: Physician 's [facility] History of Present Illness: This is a 67-year-old female patient with a known medical history of tobacco abuse, hypertension, hyperlipidemia and right bundle branch block presented to the ED with complaints of chest pain. Patient states that she was sleeping and woken up out of sleep with a midsternal chest pressure, denies any radiation of pressure, she checked her blood pressure with reports of systolic in the 160s. She decided to take a clonidine 2 at home and the pain subsided. Patient states that it felt like her heart was pounding out of her chest this morning. She denies any associated nausea, vomiting, sweating. She does admit to associated shortness of breath with the pain. She does admit to having this type of sensation before and each time her blood pressure has been elevated. Patient denies any recent illness including fever, chills, cough, headache, abdominal pain, nausea, vomiting, diarrhea or dysuria. Patient follows with the [facility] for her PCP. She has seen a lacquer mixer 2 weeks ago, Dr. White, who did not make any changes to her medications. She does admit to a left carotid stenosis roughly 68% which is being monitored by her lacquer mixer. She did also have an echocardiogram recently which has some reports of regurgitation and venous lower extremity ultrasounds which showed mild plaque. Patient did undergo a cardiac myocardial perfusion scan 3 years ago for similar symptoms which was reportedly negative. Patient does admit to compliance with her medications. - Diagnosis (1) Chest pain (2) Hypertension (3) Hypokalemia (4) Hyponatremia Review of Systems All other systems reviewed negative except as stated in [facility]PI [facility] - History History Provided By: Patient - Medical History Medical History: Medical History (Last Reviewed 11/26/17 @ 09:12 by Dahlia Rodrigues RN) Hypercholesterolemia Hypertension Right bundle branch block - Surgical History Surgical History: Surgical History (Last Reviewed 11/26/17 @ 09:12 by Dahlia Rodrigues RN) History of repair of hiatal hernia Hx of tonsillectomy - Family History Family History: Family History (Last Updated 11/26/17 @ 09:31 by Belia Maravilla) Mother Cardiovascular disease Father Cardiovascular disease - Tobacco History Tobacco Use In Past 30 Days: No Smoking Status: Former smoker Tobacco Type: Cigarettes - Alcohol History How Often Do You Have a Drink Containing Alcohol: 2 to 3 times a week - Substance Use History Substance History: No History of Abuse - Travel History Recent Travel in the [place] Within the Last 8 Weeks: No Recent Travel Out of the Country Within the Last 8 Weeks: No - Immunization History Tetanus Immunization: <5 Years Hx Influenza Vaccine This Season: Yes Medications and Allergies Active Medications: Active Medications Aspirin (Aspirin) 325 mg PO DAILY RONNELL Nitroglycerin (Nitrostat Sl) 0.4 mg SL Q5M PRN PRN Reason: CHEST PAIN Sodium Chloride (Ns Flush) 2 ml IV.FLUSH BID RONNELL Sodium Chloride (Ns Flush) 2 ml IV.FLUSH PRN PRN PRN Reason: FLUSH AFTER USING IV ACCESS Allergies Allergy/AdvReac Type Severity Reaction Status Date / Time latex Allergy Unknown Rash Verified 11/26/17 09:12 Home Medications Medication Instructions Recorded Confirmed Type Lactobacillus acidophilus 1 tab PO BID 11/26/17 11/26/17 History amlodipine 5 mg PO DAILY 11/26/17 11/26/17 History atenolol 50 mg PO DAILY 11/26/17 11/26/17 History atorvastatin 40 mg PO DAILY 11/26/17 11/26/17 History carboxymethylcellulose sodium 1 drp OPHTHALMIC (EYE) Q4-6H 11/26/17 11/26/17 History clonidine HCl See Label Instructions .ROUTE 11/26/17 11/26/17 History .COMPLEX magnesium oxide 400 mg PO DAILY 11/26/17 11/26/17 History polyethylene glycol 3350 17 g PO BID 11/26/17 11/26/17 History potassium chloride 30 meq PO DAILY 11/26/17 11/26/17 History Exam Vital signs: Vital Signs 11/26/17 02:04 11/26/17 03:53 11/26/17 05:34 Temperature 97.4 F L Pulse Rate 79 63 63 Respiratory Rate 20 20 20 Blood Pressure 134/76 115/60 109/62 Pulse Oximetry 98 97 98 11/26/17 07:34 11/26/17 07:45 Temperature 96.5 F L Pulse Rate 65 72 Respiratory Rate 16 20 Blood Pressure 130/62 144/67 H Pulse Oximetry 99 94 L Intake & Output 11/25/17 11/26/17 11/26/17 18:59 06:59 18:59 Weight 52 kg 53.6 kg Other: Weight On Admission 53.6 kg Narrative: GENERAL: Well-developed, well-nourished patient in NAD. SKIN: Warm and dry. No rash. HEAD: Normocephalic. Atraumatic. EYES: Pupils equal and round. No scleral icterus. No injection or drainage. ENT: No nasal bleeding or discharge. Mucous membranes pink and moist. NECK: Supple. Trachea midline. CARDIOVASCULAR: Regular rate and rhythm. S1, S2 noted. No murmur appreciated. No reproducible chest pain. RESPIRATORY: No accessory muscle use. Clear to auscultation. Breath sounds equal bilaterally. GASTROINTESTINAL: Abdomen soft, non-tender, nondistended. Normoactive bowel sounds x4. MUSCULOSKELETAL: No obvious deformities. Extremities without clubbing, cyanosis , or edema. NEUROLOGICAL: Awake and alert. No obvious cranial nerve deficits. Motor grossly within normal limits. 5/5 muscle strength in bilateral upper and lower extremities. Normal speech. PSYCHIATRIC: Appropriate mood and affect; insight and judgment normal. - Constitutional no acute distress - Routine HEENT Exam Head: Present: normocephalic Eye: Present: EOMI, PERRL ENT: Present: mucous membranes moist - Routine Neck Exam Present: supple Results - Labs CBC & Chem 7: 11/26/17 04:00 11/26/17 04:00 Labs: Laboratory Results - last 24 hr 11/26/17 11/26/17 11/26/17 04:00 04:00 04:00 CBC w Diff Auto diff final WBC 6.4 RBC 3.50 L Hgb 11.3 L Hct 32.6 L MCV 93.1 MCH 32.2 MCHC 34.6 RDW 13.8 Plt Count 191 MPV 11.3 H Neut % (Auto) 46.0 Lymph % (Auto) 36.2 [place] % (Auto) 9.1 H Eos % (Auto) 7.2 H Baso % (Auto) 1.5 Neut # (Auto) 2.9 Lymph # (Auto) 2.3 [place] # (Auto) 0.6 Eos # (Auto) 0.5 H Baso # (Auto) 0.1 WBC Differential . Differential Comment . PT 10.0 INR 1.0 APTT 27.7 Sodium 129 L Potassium 3.3 L Chloride 94 L Carbon Dioxide 23.4 Anion Gap 12 BUN 16 Creatinine 0.76 Estimated GFR 76 L Random Glucose 82 Calcium 8.4 L Magnesium 2.0 Total Creatine Kinase 86 Troponin I Less than 0.02 L 11/26/17 06:34 CBC w Diff WBC RBC Hgb Hct MCV MCH MCHC RDW Plt Count MPV Neut % (Auto) Lymph % (Auto) [place] % (Auto) Eos % (Auto) Baso % (Auto) Neut # (Auto) Lymph # (Auto) [place] # (Auto) Eos # (Auto) Baso # (Auto) WBC Differential Differential Comment PT INR APTT Sodium Potassium Chloride Carbon Dioxide Anion Gap BUN Creatinine Estimated GFR Random Glucose Calcium Magnesium Total Creatine Kinase 84 Troponin I - Imaging Impressions Chest X-Ray 11/26/17 04:12 CONCLUSION: Possible small right effusion Caprini VTE Risk Assessment Caprini VTE Risk Assessment: Moderate/High Risk (score >= 2) Caprini Risk Assessment Model: Point Value = 1 Point Value = 2 Point Value = 3 Point Value = 5 Age 41-60 Minor surgery BMI > 25 kg/m2 Swollen legs Varicose veins or History of unexplained or recurrent spontaneous Oral contraceptives or hormone replacement Sepsis (< 1 month) Serious lung disease, including pneumonia (< 1 month) Abnormal pulmonary function Acute myocardial infarction Congestive heart failure (< 1 month) History of inflammatory bowel disease Medical patient at bed rest Age 61-74 Arthroscopic surgery Major open surgery (> 45 min) Laparoscopic surgery (> 45 min) Malignancy Confined to bed (> 72 hours) Immobilizing plaster cast Central venous access Age >= 75 History of VTE Family history of VTE Factor V Leiden Prothrombin 95052A Lupus anticoagulant Anticardiolipin antibodies Elevated serum homocysteine Heparin-induced thrombocytopenia Other congenital or acquired thrombophilia Stroke (< 1 month) Elective arthroplasty Hip, pelvis, or leg fracture Acute spinal cord injury (< 1 month) Prophylaxis Regimen: Total Risk Factor Score Risk Level Prophylaxis Regimen 0-1 Low Early ambulation 2 Moderate Order ONE of the following: *Sequential Compression Device (SCD) *Heparin 5000 units SQ BID 3-4 Higher Order ONE of the following medications: *Heparin 5000 units SQ TID *Enoxaparin/Lovenox 40 mg SQ daily (WT < 150 kg, CrCl > 30 mL/min) *Enoxaparin/Lovenox 30 mg SQ daily (WT < 150 kg, CrCl > 10-29 mL/min) *Enoxaparin/Lovenox 30 mg SQ BID (WT < 150 kg, CrCl > 30 mL/min) AND/OR *Sequential Compression Device (SCD) 5 or more Highest Order ONE of the following medications: *Heparin 5000 units SQ TID (Preferred with Epidurals) *Enoxaparin/Lovenox 40 mg SQ daily (WT < 150 kg, CrCl > 30 mL/min) *Enoxaparin/Lovenox 30 mg SQ daily (WT < 150 kg, CrCl > 10-29 mL/min) *Enoxaparin/Lovenox 30 mg SQ BID (WT < 150 kg, CrCl > 30 mL/min) AND *Sequential Compression Device (SCD) Assessment and Plan - Assessment (1) Chest pain Code(s): R07.9 - Chest pain, unspecified Status: Acute Plan: Patient has been admitted to the chest pain center for observation. Serial EKGs and serial troponins have been ordered for ruling ACS purposes. Troponin trend flat. EKG reviewed showing right bundle branch block, this is chronic for patient and she is aware of finding. Patient will be continued on cardiac telemetry, monitor for any arrhythmias. Chest x-ray reviewed showing small pleural effusion. Patient is on room air with no shortness of breath at this time. Labs reviewed showing mild hypokalemia and hyponatremia, will replace. Patient is on a statin, PCP following lipid panel. Patient given aspirin and nitroglycerin in ED, symptoms have improved. Nitroglycerin available for chest pain. Patient will undergo a cardiac myocardial perfusion scan to further rule out any ischemia. Patient is stable at this time and agreeable to the plan. Further hospitalization and treatment plan will depend on nuclear imaging results. (2) Hypertension Code(s): I10 - Essential (primary) hypertension Status: Acute Plan: We will continue home medications. Monitor blood pressure trends. (3) Hypokalemia Code(s): E87.6 - Hypokalemia Status: Acute Plan: K3.3. Will replace. (4) Hyponatremia Code(s): E87.1 - Hypo-osmolality and hyponatremia Status: Acute Plan: Will give 500 mL bolus. (1) Chest pain Qualifiers: Chest pain type: precordial pain Qualified Code(s): R07.2 - Precordial pain (2) Hypertension Qualifiers: Hypertension type: essential hypertension Qualified Code(s): I10 - Essential (primary) hypertension
[2017-11-26] MEDS ORDERED: ALPRAZolam 0.25 MG Tablet PO ONE (08:29)
[2017-11-26] MEDS: Atenolol 50 MG Tablet PO SCH ×2 (08:58→13:59)
[2017-11-26] MEDS ORDERED: amLODIPine 5 MG Tablet PO SCH (09:00)
[2017-11-26] MEDS ORDERED: Carboxymethylcellulose 0.5% Opth Drops 15 ML Bottle EACH EYE SCH (09:00)
[2017-11-26] MEDS ORDERED: Magnesium Oxide 400 MG Tablet PO SCH (09:00)
[2017-11-26] MEDS ORDERED: Aspirin 325 MG Tablet PO SCH (09:00)
[2017-11-26] MEDS ORDERED: Polyethylene Glycol 3350 17 GM Packet PO SCH (09:00)
[2017-11-26] MEDS ORDERED: Sodium Chlor 0.9% Inj 500 ML IV.SIG ONE (09:35)
--- NOTE | 2017-11-26 10:58 | ECG ---
Date Performed: 11/26/2017 Time Performed: 06:30:41 PTAGE: 67 years EKG: Sinus rhythm RIGHT BUNDLE BRANCH BLOCK LEFT ANTERIOR FASCICULAR BLOCK ABNORMAL ECG NO SIG CHANGE PREVIOUS TRACING : 03/28/2009 20.18 DOCTOR: Braxton Medley Interpretating Date/Time 11/27/2017 07:23:16
--- NOTE | 2017-11-26 11:00 | ECG ---
Date Performed: 11/26/2017 Time Performed: 01:18:32 PTAGE: 67 years EKG: Sinus rhythm RIGHT BUNDLE BRANCH BLOCK LEFT ANTERIOR FASCICULAR BLOCK TERMINAL DELAY OF RBBB SLIGHTLY PROLONGED A BNORMAL ECG NO PREVIOUS TRACING DOCTOR: Braxton Medley Interpretating Date/Time 11/26/2017 10:58:53
[2017-11-26] MEDS ORDERED: Regadenoson Inj 0.4 MG/5 ML Syringe IV.PUSH ONE (11:55)
--- NOTE | 2017-11-26 12:50 | NM ---
EXAM DATE: 11/26/2017 12:24 PM EDT AGE/SEX: 67 years / Female INDICATIONS:Angina. Right bundle branch block Midsternal chest pain for one day. CLINICAL DATA: This is the patient's initial encounter. Patient reports that signs and symptoms have been present for 1 day and indicates a pain score of 4/10. MEDICAL/SURGICAL HISTORY: Hypertension. Inguinal hernia repair. Tonsillectomy. COMPARISON: No prior exams available for comparison. DOSE: 8.5 mCi Tc 99m Myoview at rest 25.4 mCi [id number] at stress 0.4 mg Lexiscan STRESS SYMPTOMS: Dyspnea and heart racing. EJECTION FRACTION: >70 % TECHNIQUE: The patient underwent pharmacologic stress with infusion of prescribed dose. Continuous ECG tracing was monitored during stress. Gated SPECT imaging was performed after stress and conventi onal SPECT imaging was performed at rest. The examination was performed on a SPECT/CT scanner, both attenuation and non-corrected datasets were reviewed. FINDINGS: Distribution: The maximum perfused segment at stress is in the anterior wall. Perfusion Study: No fixed or reversible areas of perfusion defects. Gated Study: There is hypokinesis of the apex which may reflect suspended myocardium. However, no pe rfusion abnormality is identified within this area. The remainder of the wall demonstrates normal mot ility and thickening. The ejection fraction is calculated at >70%. RISK CATEGORY: Low (<1% Annual Motality Rate) CONCLUSION: 1. Dyskinesis/hypokinesis of the apex without corresponding perfusion abnormality. The remainder of the exam is normal. Electronically signed by: Huong Malave MD 11/26/2017 12:49 PM EDT
--- NOTE | 2017-11-27 14:52 | TR ---
Date Performed: 11/26/2017 Time Performed: 11:38:38 DOCTOR: Montez Fernández DRUG LIST: CLINICAL HISTORY: CHEST PAIN REASON FOR TEST: Chest pain REASON FOR ENDING: OBSERVATION: CONCLUSION: COMMENTS: Lexiscan stress test was performed under standard four minute protocol. Radionuclide was injected one minute prior to ending the test. RBBB was present throughout test making ECG inpreta tion nondiagnostic. Nuclear imaging and interpretation are pending.
== END 2017-11-26 14:22 | disposition home or self-care (01) ==
LOC: PHEDA 01:16 → PH3 01:16 → PHED 01:16 → PH3 07:34
PROVIDERS: ADMIT Hospitalist; ATTEND Hospitalist